=== PATIENT | female | born 1960 | race American Indian/Alaskan Native ===

== ENCOUNTER 2020-08-02 11:10 | Outpatient (CLI) | payer BC, MEDICARE ==
--- NOTE | 2020-08-02 15:00 | Mammography Report ---
DEXA BONE DENSITY SCAN INDICATION / CLINICAL INFORMATION: ENCOUNTER FOR SCREENING FOR OSTEOPOROSIS. 60 years Female COMPARISON: None available. LUMBAR SPINE, L1-L4: - Bone mineral density (BMD) = 0.896 g/cm2. - T-score = -2.4 - Z-score = -0.9 Change (%) since most recent prior (if available): None available. RIGHT FOREARM, TOTAL : - Bone mineral density (BMD) = 0.444 g/cm2. - T-score = -2.3 - Z-score = -1.1 Change (%) since most recent prior (if available): None available. LEFT HIP, NECK : - Bone mineral density (BMD) = 0.599 g/cm2. - T-score = -2.5 - Z-score = -1.5 Change (%) since most recent prior (if available): None available. IMPRESSION: 1. WHO Classification: Osteoporosis. Fracture Risk: High. Note: 10-Year Fracture Risk (FRAX) not reported. This DEXA unit lacks FRAX functionality. BMD Reporting Guidelines (ISCD, 2015) BMD Reporting in Postmenopausal Women and in Men Age 50 and Older - T-scores are preferred. - The WHO densitometric classification is applicable. BMD Reporting in Females Prior to Menopause and in Males Younger Than Age 50 - Z-scores, not T-scores, are preferred. This is particularly important in children. - A Z-score of -2.0 or lower is defined as below the expected range for age, and a Z-score above -2.0 is within the expected range for age. - Osteoporosis cannot be diagnosed in men under age 50 on the basis of BMD alone. - The WHO diagnostic criteria may be applied to women in the menopausal transition. http://www.iscd.org/official-positions/9159-dsvt-sbnmhltn-positions-adult/ Signer Name: Jesus Alberto Blake MD Signed: 08/02/2020 2:56 PM Workstation Name: [id number]
== END 2020-08-02 11:11 | disposition home or self-care (01) ==
LOC: SPVWC 11:10
PROVIDERS: ATTEND Internal Medicine Hematology & Oncology
DX: Z13.820 Encounter for screening for osteoporosis (principal); M81.0 Age-related osteoporosis without current pathological fracture
CPT/HCPCS: 77080